=== PATIENT | male | born 1990 | race Caucasian/White ===

== ENCOUNTER 2016-11-07 11:16 | Emergency (ER) | payer OTHER ==
[~2016-11-07] VITALS: Ht 175.3 cm; Wt 77.1 kg
[2016-11-07 11:28] VITALS: BP 128/82
[2016-11-07] MEDS ORDERED: IBUPROFEN600 M1 PO (12:23)
[2016-11-07] MEDS ORDERED: CYCLOBENZAPRINE10 M1 PO (12:23)
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
== END 2016-11-07 12:27 | disposition admitted as inpatient to this hospital (09) ==
LOC: ERH 11:16
DX: S16.1XXA Strain of muscle, fascia and tendon at neck level, initial encounter (principal); V49.40XA Driver injured in collision with unspecified motor vehicles in traffic accident, initial encounter; Y92.9 Unspecified place or not applicable